=== PATIENT | female | born 1950 | race Hispanic/Latino ===

== ENCOUNTER 2019-12-14 08:59 | Emergency (ER) | payer MEDICARE, OTHER ==
[~2019-12-14 08:59] MED LIST: AEC81 PO; LISI10TA7 PO
[2019-12-14] MEDS ORDERED: ONDANSETRON ODT 4 MG TAB ONE (09:32)
[2019-12-14] MEDS ORDERED: HYDROCODONE/ACETAMINOPHEN 5/325 MG TAB ONE (09:33)
== END 2019-12-14 11:18 | disposition home or self-care (01) ==
LOC: EDH 08:59
DX: S62.102A Fracture of unspecified carpal bone, left wrist, initial encounter for closed fracture (principal); E11.9 Type 2 diabetes mellitus without complications; I10 Essential (primary) hypertension; E78.00 Pure hypercholesterolemia, unspecified; W18.39XA Other fall on same level, initial encounter; Y93.89 Activity, other specified; Y92.098 Other place in other non-institutional residence as the place of occurrence of the external cause; Y99.8 Other external cause status
CPT/HCPCS: 29125; 73110

== ENCOUNTER → 2022-10-16 | Outpatient (CLI) | payer OTHER ==
[~2022-10-16] MED LIST changes: +LISI10TA24 PO; -LISI10TA7 PO
== END | disposition home or self-care (01) ==
LOC: SHCH 08:46
PROVIDERS: ATTEND Internal Medicine
DX: I08.3 Combined rheumatic disorders of mitral, aortic and tricuspid valves (principal); I10 Essential (primary) hypertension
CPT/HCPCS: 93306

== ENCOUNTER → 2022-11-03 | Outpatient (CLI) | payer OTHER | END | disposition home or self-care (01) | LOC: RAH 13:36 | PROVIDERS: ATTEND Family Medicine | DX: Z12.31 Encounter for screening mammogram for malignant neoplasm of breast (principal) | CPT/HCPCS: 77067 ==

== ENCOUNTER → 2023-11-07 | Outpatient (CLI) | payer OTHER | END | disposition home or self-care (01) | LOC: RAH 12:10 | PROVIDERS: ATTEND Internal Medicine | DX: Z13.6 Encounter for screening for cardiovascular disorders (principal); I10 Essential (primary) hypertension | CPT/HCPCS: 75571 ==

== ENCOUNTER → 2025-01-03 | Outpatient (CLI) | payer OTHER ==
[2025-01-03] MEDS: REGADENOSON 0.4 MG/5 ML PF SYG IVP ONE (13:43)
== END | disposition home or self-care (01) ==
LOC: SHCH 08:12
PROVIDERS: ATTEND Internal Medicine
DX: R93.1 Abnormal findings on diagnostic imaging of heart and coronary circulation (principal); R06.00 Dyspnea, unspecified
CPT/HCPCS: 78452; 93017; J2785; A9500 ×2

== ENCOUNTER 2025-04-08 15:04 | Observation (INO) | payer OTHER ==
[~2025-04-08] VITALS: Ht 157.5 cm; Wt 54.2 kg
[2025-04-08 15:29] LABS: APPEARANCE,URINE CLEAR (CLEAR); GLUCOSE, URINE (UA) NEGATIVE (NEGATIVE); LEUKOCYTE ESTERASE ,URINE 25 Leu/uL (NEGATIVE); NITRATE,URINE NEGATIVE (NEGATIVE); OCCULT BLOOD,URINE MODERATE (NEGATIVE)
[2025-04-08 15:31] LABS: ADD UA MICROSCOPIC YES
[2025-04-08 15:37] LABS: SQUAMOUS EPITHELIAL CELL,UR RARE /HPF (0-2)
--- NOTE | 2025-04-08 16:23 | HMCIMG ---
EXAM: CR Lumbar Spine, 3 View. CLINICAL HISTORY: LEFT LOWER BACK PAIN COMPARISON: None provided. FINDINGS: Mild dextroscoliosis. The bony structures appear demineralized. Grade 3 anterior listhesis of the L5 over the S1 vertebral body. Compression deformity superior endplate of L2. Mild compression deformity superior endplate of L1 and T12. Marked loss of the L5-S1 disc space DISCS / DEGENERATIVE CHANGES: The disc spaces are preserved. SOFT TISSUES: The soft tissues are unremarkable. IMPRESSION: 1. Grade 3 L5-S1 anterolisthesis. Recommend MRI lumbar spine for further evaluation. 2. Compression deformities of L2, L1, and T12 superior endplates. 3. Osteopenia. 4. Mild dextroscoliosis. /[place]
--- NOTE | 2025-04-08 17:45 | ERN ---
ED Note History of Present Illness Stated Complaint: PAIN TO LEFT SIDE OF BACK Chief Complaint: Back Pain-No Injury Time Seen by MD: 15:06 Time Seen by Midlevel: 15:10 Dictation: THE 74-YEAR-OLD FEMALE COMING IN WITH COMPLAINTS OF LEFT LOWER BACK PAIN RADIATING TO THE LEFT LOWER ABDOMEN. PATIENT STATES IT STARTED YESTERDAY EVENING. PATIENT STATES YESTERDAY DURING THE DAY SHE WAS MOVING FOR ANTERIOR AROUND LOOKING FOR A SNAKE AND PAIN STARTED SHORTLY AFTER. DENIES ANY FALL. DENIES ANY NUMBNESS, TINGLING, INCONTINENCE. Allergies: Coded Allergies: No Known Drug Allergies (Verified Allergy, Unknown, 09/05/14) Home Meds Reported Medications Lisinopril (Lisinopril) 10 Mg Tablet, 10 MG PO AM, TAB 09/10/14 Aspirin (ASPIRIN 81 MG ECTAB) 81 Mg Ectab, 81 MG PO AM, TAB.EC 09/10/14 Past Medical History Past Medical History: High Cholesterol, Hypertension Surgical History: Hysterectomy Review of System Dictation Constitutional: Negative for fever,chills, and weight loss Eyes: Negative for injury, pain,redness, and discharge ENT: Negative for injury,pain or swelling Cardiovascular: Negative for chest pain, palpitations, and edema Respiratory: Negative for shortness of breath, cough, and wheezing, Abdomen/GI: Negative for abdominal pain, nausea, vomiting, diarrhea, and constipation Back: Negative for injury and pain : Negative for injury, bleeding and discharge MS/Extremity: Negative for injury and deformity, complaining of left lower back pain radiating to the left lower inguinal area Skin: Negative for rash, and discoloration Neuro: Negative for headache, weakness, numbness, tingling, and seizure Psych: Negative for suicide ideation, homicidal ideation, and hallucinations Review of Systems: was completed Initial Vital Sign VS Vital Signs Date Time Temp Pulse Resp B/P (MAP) Pulse Ox O2 Delivery O2 Flow Rate FiO2 04/08/25 15:06 98.1 69 16 163/69 100 Room Air 0 04/08/25 15:15 21 Physical Exam Dictation General: awake, alert, NAD Head/Face: Normocephalic, atraumatic Eyes: PERRL, EOMI, vision at baseline ENT: oral cavity clear, TMs clear, no signs of infection Neck: Trachea midline, supple, no nuchal rigidity Cardiovascular: RRR, normal S1/S2, No MRGs, no JVD Respiratory: CTAB, no respiratory distress, No rales or wheezes Abdomen: Soft, non-tender, non-distended, normal bowel sounds, no guarding or rebound. Skin: Warm, dry, normal turgor, no rash MS/Extremity: Pulses equal, no cyanosis, neurovascular intact, FROM, pain to the left lower back, radiating to the left inguinal area Neuro: COAx4, GCS 15, strength 5/5, CN 2-12 intact, normal cerebellar exam, normal gait, Psych: Normal behavior, mood, and affect normal Results (Laboratory/Radiology) Laboratory/Radiology Laboratory Tests Test 04/08/25 15:21 04/08/25 18:41 Urine Color LIGHT-YELLOW (YELLOW) Urine Appearance CLEAR (CLEAR) Urine pH 5.5 (5.0-8.0) Urine Specific [place] 1.017 (1.001-1.031) Urine Protein NEGATIVE mg/dL (NEGATIVE) Urine Glucose (UA) NEGATIVE mg/dL (NEGATIVE) Urine Ketones NEGATIVE mg/dL (NEGATIVE) Urine Occult Blood MODERATE (NEGATIVE) H Urine Nitrate NEGATIVE (NEGATIVE) Urine Bilirubin NEGATIVE mg/dL (NEGATIVE) Urine Urobilinogen 0.2 mg/dL (0.2-1.0) Urine Leukocyte Esterase 25 Adriana/uL (NEGATIVE) H Urine RBC 11-25 /HPF (0-1) H Urine WBC 2-5 /HPF (0-1) H Urine Squamous Epithelial Cells RARE /HPF (0-2) Urine Bacteria MOD /HPF (None Seen) White Blood Count 8.4 K/uL (4.8-10.8) Red Blood Count 4.59 MIL/uL (4.00-5.50) Hemoglobin 13.3 g/dL (12.0-16.0) Hematocrit 39.7 % (36-48) Mean Corpuscular Volume 86.5 fL (79-99) Mean Corpuscular Hemoglobin 29.0 pg (27.0-33.0) Mean Corpuscular Hemoglobin Concent 33.5 g/dL (32.0-36.0) Red Cell Distribution Width 12.8 % (11.0-15.5) Platelet Count 288 K/uL (130-400) Mean Platelet Volume 9.5 fL (7.5-10.5) Immature Granulocyte % (Auto) 0.2 % (0-1) Neutrophils (%) (Auto) 53.7 % (40.0-77.0) Lymphocytes (%) (Auto) 34.6 % (21.0-51.0) Monocytes (%) (Auto) 7.5 % (3.0-13.0) Eosinophils (%) (Auto) 2.8 % (0.0-8.0) Basophils (%) (Auto) 1.2 % (0.0-5.0) Neutrophils # (Auto) 4.5 K/uL (1.8-7.7) Lymphocytes # (Auto) 2.9 K/uL (1.0-4.8) Monocytes # (Auto) 0.6 K/uL (0.1-1.0) Eosinophils # (Auto) 0.24 K/uL (0.00-0.70) Basophils # (Auto) 0.10 K/uL (0.00-0.20) Absolute Immature Granulocyte (auto 0.02 K/uL (0-1) Nucleated Red Blood Cells 0.0 % (0.0-0.19) Sodium Level 137 mmol/L (136-145) Potassium Level 4.0 mmol/L (3.5-5.1) Chloride Level 102 mmol/L (101-111) Carbon Dioxide Level 28 mmol/L (21-32) Blood Urea Nitrogen 24 mg/dL (7-18) H Creatinine 1.0 mg/dL (0.5-1.0) Glomerular Filtration Rate Calc 59 mL/min (>90) Random Glucose 103 mg/dL (70-105) Total Calcium 9.2 mg/dL (8.5-10.1) Labs Reviewed?: Yes X-RAY Comment: [place] [address] IMAGING REPORT Signed PATIENT: SAHIL MATIAS MR#: [id number] : 1950 SEX: F AGE: 74 LOCATION: [facility] ORDER 20 STATUS: REG ER REPORT#: [id number] SERVICE 152 REASON: LEFT LOWER BACK PAIN ORDERING PHYSICIAN: HARMAN,RIANNA BRICK TENDER PROCEDURE: LUMB 2 3VW - LUMBAR SPINE 2-3VWS EXAM: CR Lumbar Spine, 3 View. CLINICAL HISTORY: LEFT LOWER BACK PAIN COMPARISON: None provided. FINDINGS: Mild dextroscoliosis. The bony structures appear demineralized. Grade 3 anterior listhesis of the L5 over the S1 vertebral body. Compression deformity superior endplate of L2. Mild compression deformity superior endplate of L1 and T12. Marked loss of the L5-S1 disc space DISCS / DEGENERATIVE CHANGES: The disc spaces are preserved. SOFT TISSUES: The soft tissues are unremarkable. IMPRESSION: 1. Grade 3 L5-S1 anterolisthesis. Recommend MRI lumbar spine for further evaluation. 2. Compression deformities of L2, L1, and T12 superior endplates. 3. Osteopenia. 4. Mild dextroscoliosis. /[place] DICTATED BY: VICENTE RIOJAS MD DATE: 04/08/251722 ELECTRONICALLY SIGNED BY: VICENTE RIOJAS MD DATE: 04/08/251722 ED Course ED Course Orders Procedure Category Date Status Time Lumbar Spine 2-3vws RAD 04/08/25 Resulted 15:20 Urinalysis Profile LAB 04/08/25 Complete 15:20 Tramadol Hcl (Ultram) PHA 04/08/25 Complete 15:22 Ct Abdomen/Pelvis W/O CT 04/08/25 Resulted Contrast 16:01 Cbc With Differential LAB 04/08/25 Complete 18:27 Basic Metabolic Panel LAB 04/08/25 Complete 18:27 Culture Urine LOKESH 04/08/25 In Process 18:32 Ceftriaxone 1g Vial PHA 04/08/25 Complete (Rocephine 1g Inj) 18:32 Mr Spinal Canal, Lumb MRI 04/08/25 Logged W/Wo Con 20:27 Ct Lumbar Spine W/O CT 04/08/25 Logged Contrast 20:27 Current Medications Medications (Trade) Dose Ordered Sig/Donya Route PRN Reason Start Time Stop Time Status Last Admin Dose Admin Ceftriaxone Sodium (ROCEphine 1G INJ) 1 gm ONCE STAT IVPB 04/08/25 18:32 04/08/25 18:35 DC 04/08/25 18:48 Tramadol HCl (UltRAM) 50 mg ONCE STAT PO 04/08/25 15:22 04/08/25 15:26 DC 04/08/25 15:38 Vital Signs Date Time Temp Pulse Resp B/P (MAP) Pulse Ox O2 Delivery O2 Flow Rate FiO2 04/08/25 15:15 98.2 66 16 160/65 98 Room Air* 0 21 04/08/25 15:06 98.1 69 16 163/69 100 Room Air 0 Medical Decision Making MDM MDM: THE 74-YEAR-OLD FEMALE COMING IN WITH COMPLAINTS OF LEFT LOWER BACK PAIN RADIATING TO THE LEFT LOWER ABDOMEN. PATIENT STATES IT STARTED YESTERDAY EVENING. PATIENT STATES YESTERDAY DURING THE DAY SHE WAS MOVING FOR ANTERIOR AROUND LOOKING FOR A SNAKE AND PAIN STARTED SHORTLY AFTER. DENIES ANY FALL. DENIES ANY NUMBNESS, TINGLING, INCONTINENCE. Patient came in ambulating without assistance. CBC shows no leukocytosis, no anemia, no thrombocytopenia. Chemistry unremarkable. UA shows evidence of urinary tract infection. Antibiotics given in the emergency room. L-spine x-ray of the showing a grade 3 L5-S1 anterolisthesis, compression deformities of L2, L1 and T12 superior endplates. CT scan of the abdomen and pelvis ordered to rule out any nephrolithiasis, waiting no acute intra-abdominal or pelvic pathology. No acute or suspicious osseous abnormality, spondylitic grade 2-3 anterolisthesis of L5 with respect up this one. Due to patient's age and patient be admitted for seo specialist. at 2019 i Spoke to AMARILYS Carson for [facility], accepted admission however wanted me to order an MRI stat. There is a neurology on-call for today and tomorrow if the patient needs a specialist consult. Differential diagnosis: Contusion, muscle spasm, L spine injury Rationale: Tests considered and ordered secondary to shared decision making include: labs, ECG and radiology Previous outside records reviewed: Old ER visits. Risk of complication and/or morbidity or mortality of patient management: None Medications-Per medication reconciliation Need for hospitalization: Patient does meet criteria for hospitalization. Need for emergency major/minor surgery: No There are no social concerns with this patient. Prescription drug management Prescriptions will include symptomatic care Patient's prior external medical records from other ER visits were reviewed by me as indicated. Prior testing and results from previous visits were reviewed. Prior tests were taken into account with medical decision making and resource utilization, independent historian/historians were used to obtain complete medical history. I independently interpreted the test that were performed, results were reviewed by me and considered findings on radiology if ordered. Medical management and examination interpretation discussions were had by me with other qualified healthcare professionals as indicated for the patient's care. DX & DISP Disposition: Inpatient Decision to Admit Date: Apr 08, 2025 Decision to Admit Time: 20:34 Departure Impression: Primary Impression: Back pain Additional Impressions: Compression deformity of vertebra, UTI (urinary tract infection) Condition: Stable Referrals: BALWINDER RICARDO M.D. (PCP) I have reviewed the case, and I agree with, Diagnosis and Plan RIANNA HARMAN NP Apr 08, 2025 17:45
--- NOTE | 2025-04-08 18:21 | HMCIMG ---
EXAM: CT Abdomen and Pelvis without IV contrast CLINICAL HISTORY: HEMATURIA TECHNIQUE: Axial computed tomography images of the abdomen and pelvis without intravenous contrast. CT scan performed according to ALARA. Automated exposure control used during exam. CONTRAST: without intravenous contrast. COMPARISON: None provided. FINDINGS: Lung bases are clear. Limited evaluation of the abdominal organs without intravenous contrast. No focal abnormality appreciated within the liver, gallbladder, either adrenal gland, either kidney, spleen, or pancreas. Low-attenuation foci within the liver are presumed reflect cysts; however these may be further characterized with ultrasound. Bowel loops are normal in caliber without evidence of obstruction or ileus. No obvious bowel wall thickening appreciated. The appendix was not visualized. No inflammatory changes are seen within the right lower quadrant to suggest acute appendicitis. No abnormality within the unopacified bladder. The uterus is surgically absent. Presumed 1.8 x 1.3 cm right ovarian cyst. There is no ascites or lymphadenopathy. Atherosclerotic vascular calcifications are noted. There is no acute or suspicious osseous abnormality. Spondylitic grade 2-3 anterolisthesis of L5 with respect S1. Severe disc disease at L5-S1 and mild to moderate disc disease at remaining lumbar levels. IMPRESSION: 1. No acute intraabdominal or pelvic pathology. 2. Specifically no radiopaque renal calculus or hydronephrosis. /[place]
[2025-04-08 18:48] LABS: IMMATURE GRANULOCYTE ABSOLUTE 0.02 K/uL (0-1); NUCLEATED RED BLOOD CELLS 0.0 % (0.0-0.19); PLATELET COUNT (AUTO) 288 K/uL (130-400); RED BLOOD CELL COUNT(AUTO) 4.59 MIL/uL (4.00-5.50); RED CELL DISTRIBUTION WIDTH 12.8 % (11.0-15.5); WHITE BLOOD COUNT (AUTO) 8.4 K/uL (4.8-10.8)
[2025-04-08 18:55] LABS: CREATININE 1.0 mg/dL (0.5-1.0); GLOMERULAR FILTR. RATE CALC 59.0 mL/min (>90); GLUCOSE,RANDOM 103.0 mg/dL (70-105); SODIUM SERUM 137.0 mmol/L (136-145); UREA NITROGEN, BLOOD 24.0 mg/dL (7-18)
--- NOTE | 2025-04-08 19:03 | NUR ---
transfer care to [facility] at this time
--- NOTE | 2025-04-08 20:48 | HP ---
[facility] HISTORY & PHYSICAL Date Patient Seen: Apr 08, 2025 Time of Visit: 20:35 Supervising Physician: [Dr. Myles Mack ] Primary Care Physician: [DIAN Wright] Outpatient Specialists: [ ] Inpatient Consults: [ ] PROBLEM LIST: R/o Lumbar radiculopathy-POA Intractable lower back pain-POA UTI-POA PLAN: -Admit to medsur unit -Pending MRI and CT of lumbar region, if significant findings might warrant neurosurgical eval -Multimodal pain management -Start on IV Rocephin for UTI coverage -PT/OT to eval and treat -Place on bedrest until MRI findings is obtained HPI: [ Patient is a 74-year-old female who denies any significant medical history who was presented to ED concerning a 3-day duration of lower back pain that started on her left waist after lifting and moving furniture at home. Patient claims that she was in her usual state of health and was checking for some snake in her house. In the process, she and her has been moving some things around and the following day started complaining of left waist/hip pain. She got worried because the pain did not go away so she decided to come to the hospital for further evaluation. She denies other constitutional symptoms. Negative for paresthesia, saddle anesthesia, or loss of urinary/bowel control. At the ED, her preliminary lab works were unremarkable. Urinalysis per concerning for UTI. Lumbar spine x-ray revealed grade 3 L5-S1 anterolisthesis and compression deformities of L2, L1, and T12 superior endplates. A follow-up CT and MRI of the lumbar area was ordered by ED practitioner. Physical assessment was unrevealing except for tenderness on the lower lumbar region. Goals of care were discussed with the patient and verbalizes understanding and agreement. PAST MEDICAL HX: see above PAST SURGICAL HX: noncontributory SOCIAL HISTORY: No tobacco, ETOH, or illicit drug use Coded Allergies: No Known Drug Allergies (Verified Allergy, Unknown, 09/05/14) REVIEW OF SYSTEMS: 12 point ROS reviewed with patient. Pertinent positives mentioned above. Otherwise negative. PHYSICAL EXAM: GENERAL: alert, awake oriented x 3 HEENT: EOMI, Sclera non icteric, moist mucosa NECK: Supple, no JVD, trachea midline LUNGS: Clear breath sounds bilaterally. No wheezes HEART: Regular rate and rhythm. Normal S1 and S2, without murmurs ABD: Abdomen soft, nontender. Bowel sounds present EXT: No clubbing cyanosis or edema. Tenderness on lower lumbar area NEURO: Alert and oriented to person, follows commands Vital Signs (last 8hr) Date Time Temp Pulse Resp B/P (MAP) Pulse Ox O2 Delivery O2 Flow Rate FiO2 04/08/25 15:15 98.2 66 16 160/65 98 Room Air* 0 21 04/08/25 15:06 98.1 69 16 163/69 100 Room Air 0 LABS: Hematology Labs: Test 04/08/25 18:41 Range/Units White Blood Count 8.4 4.8-10.8 K/uL Red Blood Count 4.59 4.00-5.50 MIL/uL Hemoglobin 13.3 12.0-16.0 g/dL Hematocrit 39.7 36-48 % Mean Corpuscular Volume 86.5 79-99 fL Mean Corpuscular Hemoglobin 29.0 27.0-33.0 pg Mean Corpuscular Hemoglobin Concent 33.5 32.0-36.0 g/dL Red Cell Distribution Width 12.8 11.0-15.5 % Platelet Count 288 130-400 K/uL Mean Platelet Volume 9.5 7.5-10.5 fL Immature Granulocyte % (Auto) 0.2 0-1 % Neutrophils (%) (Auto) 53.7 40.0-77.0 % Lymphocytes (%) (Auto) 34.6 21.0-51.0 % Monocytes (%) (Auto) 7.5 3.0-13.0 % Eosinophils (%) (Auto) 2.8 0.0-8.0 % Basophils (%) (Auto) 1.2 0.0-5.0 % Neutrophils # (Auto) 4.5 1.8-7.7 K/uL Lymphocytes # (Auto) 2.9 1.0-4.8 K/uL Monocytes # (Auto) 0.6 0.1-1.0 K/uL Eosinophils # (Auto) 0.24 0.00-0.70 K/uL Basophils # (Auto) 0.10 0.00-0.20 K/uL Absolute Immature Granulocyte (auto 0.02 0-1 K/uL Nucleated Red Blood Cells 0.0 0.0-0.19 % Chemistry Labs: Test 04/08/25 18:41 Range/Units Sodium Level 137 136-145 mmol/L Potassium Level 4.0 3.5-5.1 mmol/L Chloride Level 102 101-111 mmol/L Carbon Dioxide Level 28 21-32 mmol/L Blood Urea Nitrogen 24 H 7-18 mg/dL Creatinine 1.0 0.5-1.0 mg/dL Glomerular Filtration Rate Calc 59 >90 mL/min Random Glucose 103 70-105 mg/dL Total Calcium 9.2 8.5-10.1 mg/dL DIAGNOSTICS / RADIOLOGY RESULTS: [ ] PLAN NEURO: Minimize central acting medications as possible. Maintain fall precautions, adequate lighting during the day PULMONARY: Supplemental 02 as needed. Maintain aspiration precautions at all times CARDIOVASCULAR: Follow hemodynamics. Vital signs per facility protocol GI & NUTRITION: Continue with nutritional support. Continue stool softeners and laxatives as needed. KIDNEYS & ELECTROLYTES: Strict monitoring of intake, output and overall fluid balance. Avoid nephrotoxic medications to the extent possible. Medications to be dosed according to renal function. Monitor electrolytes and replace as needed ENDOCRINE: Maintain blood glucose between 100-180 at all times. Hypoglycemia protocol in place INFECTIOUS DISEASE: Trend temperature, WBC and procalcitonin level Follow cultures, deescalate antibiotics as soon as possible. Panculture if new onset fever ONCOLOGY/HEMATOLOGY/COAGULATION: Monitor for s/s of bleeding Monitor hemoglobin, coagulation studies as needed SKIN: Pressure ulcer prevention per facility protocol Specialty mattress ORTHO/REHAB: Continue PT/OT Prophylaxis: Continue GI and DVT prophylaxis Code Status: Full Resuscitation Disposition: JAVIER REESE AGPCNP Apr 08, 2025 20:48
--- NOTE | 2025-04-08 20:59 | NUR ---
TRANSFERRED PT TO [facility]
[2025-04-08] MEDS ORDERED: LACTULOSE 20 GM/30 ML UDCUP PO PRN (21:00)
[2025-04-08] MEDS: LIDOCAINE 5% TOPICAL PATCH TP SCH (21:28)
[2025-04-08] MEDS: FAMOTIDINE 20MG TAB PO SCH (21:28)
--- NOTE | 2025-04-08 22:05 | HMCIMG ---
EXAM: CT Lumbar Spine Without IV Contrast. CLINICAL HISTORY: Abnormal imaging. X-rays demonstrate a compression fracture. TECHNIQUE: Spiral axial CT images through the lumbar spine were acquired, reconstructed in axial and sagittal projections, and imaged using soft tissue and bone algorithms. Reformatted/MPR images were performed. A CT scan is done according to ALARA (As Low as Reasonably Achievable). CONTRAST: None. COMPARISON: None provided. FINDINGS: No acute fracture. Mild posterior wedging of the L5 vertebra is likely a chronic process. The rest of the vertebral bodies are normal in height. Severe degenerative changes at the L5-S1 level. The rest of the intervertebral disc spaces are normal in height. The surrounding soft tissues are unremarkable. Mild disc bulges at L2-L3, L3-L4, and L4-L5 levels with mild bilateral facet arthropathy. Moderate narrowing of the left neural foramina at the L4-L5 level. Abutment of the left exiting nerve root. Mild posterior wedging of the L5 vertebra. Bilateral pars defect at the L5-S1 level with grade 3 anterolisthesis of L5 over S1 with severe facet arthropathy. Moderate to severe narrowing of the neural foramina at the L5-S1 level. Atherosclerotic calcification of the abdominal aorta and infrarenal aorta. Visualized abdominal and pelvic organs appear unremarkable. Post-hysterectomy status. IMPRESSIONS: No acute fracture. Mild posterior wedging of the L5 vertebra is likely a chronic process. Mild osteopenia. Mild disc bulges at L2-L3, L3-L4, and L4-L5 levels with mild bilateral facet arthropathy. Moderate narrowing of the left neural foramina at the L4-L5 level. Abutment of the left exiting nerve root. Bilateral pars defect at the L5-S1 level with grade 3 anterolisthesis of L5 over S1 with severe facet arthropathy. Moderate to severe narrowing of the neural foramina at the L5-S1 level. /[place]
[2025-04-08 22:13] VITALS: BP 139/67; PULSE 67; RESP 17; TEMP 98.7
--- NOTE | 2025-04-08 23:02 | HMCIMG ---
EXAM: MR Lumbar Spine Without and With intravenous Contrast. CLINICAL HISTORY: Pain. Abnormal prior imaging. TECHNIQUE: Magnetic resonance images of the lumbar spine in multiple planes. COMPARISON: None. FINDINGS: For this examination, spinal levels were labeled assuming five [id number], lumbar-type vertebrae, with the inferior labeled L5. Grade 2 anterolisthesis with bilateral chronic spondylolysis at the L5-S1 level, with severe reduction in the disc height and partial fusion at this level. No acute fracture. Multilevel disc desiccation in the lumbar spine. Mild to moderate reduction in the disc height at the T11-12, T12-L1, and L1-2 levels. Normal vertebral body and disc heights. Normal marrow signal of the vertebrae. Conus medullaris terminates at the T12-L1 level. No abnormal epidural masses. The surrounding soft tissues are unremarkable. TARLOV cyst at the S2 level. Individual spinal levels are described as follows: T12-L1: 2 mm circumferential disc bulge. No neural foraminal, lateral recess, or spinal canal stenosis. L1-L2: 5 mm circumferential disc bulge with a small posterocentral disc extrusion extending inferiorly. Mild canal stenosis. Mild bilateral lateral recess narrowing. Mild left neural foraminal narrowing. Mild bilateral facet arthropathy with ligamentum flavum hypertrophy. L2-L3: 3 mm circumferential disc bulge. Mild canal stenosis. Mild bilateral lateral recess and neural foraminal narrowing. Mild bilateral facet arthropathy with ligamentum flavum hypertrophy. L3-L4: 3 mm circumferential disc bulge. Mild canal stenosis. Mild bilateral lateral recess and neural foraminal narrowing. Mild bilateral facet arthropathy with ligamentum flavum hypertrophy. L4-L5: 4 mm circumferential disc bulge. Mild canal stenosis. Mild bilateral lateral recess and neural foraminal narrowing. Mild bilateral facet arthropathy with ligamentum flavum hypertrophy. L5-S1: Grade 2 anterolisthesis with 15 mm posterior uncovering of the disc. Severe canal stenosis. Severe bilateral neural foraminal narrowing with impingement of the bilateral exiting L5 nerve roots. Moderate to severe bilateral lateral recess narrowing with impingement of the bilateral traversing S1 nerve roots. IMPRESSION: Multilevel degenerative disc disease in the lumbar spine, most pronounced at the L5-S1 level, with grade 2 anterolisthesis and bilateral chronic spondylolysis at this level. /[place]
[2025-04-09] VITALS: O2SAT 100
[2025-04-09 04:00] VITALS: BP 111/59; PULSE 57; RESP 20; TEMP 98.1
[2025-04-09 04:20] LABS: IMMATURE GRANULOCYTE ABSOLUTE 0.02 K/uL (0-1); NUCLEATED RED BLOOD CELLS 0.0 % (0.0-0.19); PLATELET COUNT (AUTO) 247 K/uL (130-400); RED BLOOD CELL COUNT(AUTO) 4.24 MIL/uL (4.00-5.50); RED CELL DISTRIBUTION WIDTH 12.9 % (11.0-15.5); WHITE BLOOD COUNT (AUTO) 7.4 K/uL (4.8-10.8)
[2025-04-09 04:31] LABS: CREATININE 1.0 mg/dL (0.5-1.0); GLOMERULAR FILTR. RATE CALC 59.0 mL/min (>90); GLUCOSE,RANDOM 77.0 mg/dL (70-105); PHOSPHORUS 4.4 mg/dL (2.5-4.9); SODIUM SERUM 141.0 mmol/L (136-145); UREA NITROGEN, BLOOD 23.0 mg/dL (7-18)
[2025-04-09 07:57] VITALS: BP 139/52; PULSE 71; RESP 18; TEMP 98.3
[2025-04-09 08:00] VITALS: O2SAT 98
[2025-04-09] MEDS: ENOXAPARIN SODIUM 30 MG/0.3 ML SQ SCH (08:22)
[2025-04-09 10:42] VITALS: BP 136/58; PULSE 70; RESP 18; TEMP 98.1
--- NOTE | 2025-04-09 13:56 | NUR ---
DCP:HOME Pt currently lives with sps in their home. Pt does not have any DME, home health, or provider services. Pt states that she is able to complete ADLs independently. PCP is Kenya Wright and uses [facility] for any RX needs. At [place] pt will want to go home and family can assist with transportation. Addendum: 04/09/25 at 1359 by VICENTE ELAINE SS Amended: Links added.
[2025-04-09] MEDS ORDERED: LEVO750T68 PO (16:23)
--- NOTE | 2025-04-09 16:23 | DS ---
[facility] DISCHARGE SUMMARY Date Patient Seen: Apr 09, 2025 Time of Visit: 16:23 Supervising Physician: Dr. Myles Mack Primary Care Physician: [DIAN Wright] Outpatient Specialists: [ ] Inpatient Consults: NA PROBLEM LIST: Intractable lower back pain, due to strain, resolved Urinary tract infection, asymptomatic, (+) gram negative rods, RX for Levaquin HPI (per admitting provider): Patient is a 74-year-old female who denies any significant medical history who was presented to ED concerning a 3-day duration of lower back pain that started on her left waist after lifting and moving furniture at home. Patient claims that she was in her usual state of health and was checking for some snake in her house. In the process, she and her has been moving some things around and the following day started complaining of left waist/hip pain. She got worried because the pain did not go away so she decided to come to the hospital for further evaluation. She denies other constitutional symptoms. Negative for paresthesia, saddle anesthesia, or loss of urinary/bowel control. At the ED, her preliminary lab works were unremarkable. Urinalysis per concerning for UTI. Lumbar spine x-ray revealed grade 3 L5-S1 anterolisthesis and compression deformities of L2, L1, and T12 superior endplates. A follow-up CT and MRI of the lumbar area was ordered by ED practitioner. Physical assessment was unrevea ling except for tenderness on the lower lumbar region. Goals of care were discussed with the patient and verbalizes understanding and agreement. HOSPITAL COURSE: Patient was admitted due to low back pain/left hip pain. She was started on lidocaine patch and methocarbamol dose x 1 was given yesterday in the ER. 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 Today, patient is sitting on bedside chair. AAOX3. Denies any pain to back. States she has been ambulating and turning her upper torso without any issues.Denies any paresthesias or loss of urinary/bowel control, strength 5/5. Explained MRI results lumbar to daughter and patient. Advised to follow up with PCP and neurosurgery once discharged and copy of MRI lumbar provided to patient per request. Stable for discharge. Advised to purchase lidocaine patches over the counter and take ibuprofen and Tylenol if any pain. Denies any urinary issues such as dysuria. Urine culture positive for gram negative rods. RX for Levaquin sent to pharmacy. Vital signs are stable. Labs are within limits. Patient has been advised to follow-up with PCP in next [address] Ladd. Medication reconciliation has been completed. RX with new medications sent to pharmacy (see list below). Education regarding current diagnoses has been provided to the patient. Discussed s/s that would warrant return to the emergency department. All questions have been answered. Patient to be discharged home. New Medications: Levofloxacin (Levaquin 750Mg Tabs) 750 Mg Tablet 1 TAB PO DAILY for 3 Days, #3 TAB 0 Refills Continued Medications: Aspirin (Aspirin 81 Mg Ectab) 81 Mg Ectab 81 MG PO AM, TAB.EC PHYSICAL EXAM: GENERAL: alert, awake oriented x 3 HEENT: EOMI, Sclera non icteric, moist mucosa NECK: Supple, no JVD, trachea midline LUNGS: Clear breath sounds bilaterally. No wheezes HEART: Regular rate and rhythm. Normal S1 and S2, without murmurs ABD: Abdomen soft, nontender. Bowel sounds present EXT: No clubbing cyanosis or edema. NEURO: AAOx3, follows commands FOLLOW-UP: Follow-up with PCP in 2-3 days RECOMMENDATIONS: See Discharge Instructions This case was seen and discussed with my supervising physician. More than 30 minutes spent on discharge process, including evaluation of the patient, discussion with nursing staff, medication reconciliation and follow-up appointments AGUSTÍN LAWRENCE NP Apr 09, 2025 16:23
[2025-04-09 16:24] VITALS: BP 135/51; PULSE 68; RESP 16; TEMP 98.4
--- NOTE | 2025-04-09 18:01 | NUR ---
DC INSTRUCTION PROVIDED TO PATIENT AND DAUGHTER , PATIENT VERBALIZED UNDERSTANDING
== END 2025-04-09 17:40 | disposition home or self-care (01) ==
LOC: EDH 15:04 → EDHIP 20:41 → 4AH 23:00
PROVIDERS: ADMIT Internal Medicine; ATTEND Internal Medicine
DX: S39.012A Strain of muscle, fascia and tendon of lower back, initial encounter (principal); M51.369 Other intervertebral disc degeneration, lumbar region without mention of lumbar back pain or lower extremity pain; M48.56XA Collapsed vertebra, not elsewhere classified, lumbar region, initial encounter for fracture; M85.80 Other specified disorders of bone density and structure, unspecified site; N39.0 Urinary tract infection, site not specified; E78.00 Pure hypercholesterolemia, unspecified; M25.552 Pain in left hip; I10 Essential (primary) hypertension; Z79.82 Long term (current) use of aspirin; Z90.710 Acquired absence of both cervix and uterus; Z79.899 Other long term (current) drug therapy; Z98.890 Other specified postprocedural states; X58.XXXA Exposure to other specified factors, initial encounter; Y93.89 Activity, other specified; Y92.89 Other specified places as the place of occurrence of the external cause; Y99.8 Other external cause status
CPT/HCPCS: 96376; 99285; 80048 ×2; 85025 ×2; 87086 ×2; 87186; 81001; 36415 ×2; 72100; 72131; 74176; 72158; 96372; 96365; 96366; 83735; 84100; 97161; 97116; 97530; G0378 ×21; J0696 ×2; J1650

== ENCOUNTER → 2025-04-19 | Outpatient (CLI) | payer OTHER ==
[~2025-04-19] MED LIST changes: +LEVO750T68 PO; -LISI10TA24 PO
--- NOTE | 2025-04-19 15:04 | HMCIMG ---
Exam: NONCONTRAST CT BRAIN REASON: Unspecified dementia, mild, without behavioral disturbance, psychotic distu. COMPARISON: None. TECHNIQUE: Images are obtained from vertex to the skull base. The exam was performed without IV contrast. FINDINGS: There is normal appearing brain parenchyma. There are no focal mass lesions. There is is no evidence of intracranial hemorrhage or acute stroke. Ventricles and sulci appear normal. Posterior fossa and brainstem structures are unremarkable. Paranasal sinuses and remaining extracranial soft tissues appear normal as well.There is mild global atrophy consistent with patient's chronological age. IMPRESSION: 1. No acute intracranial process. CT was performed with one or more following dose reduction techniques: automated exposure control, adjustment of the mA and kv according to patient's size, or use of a iterative reconstruction technique.
== END | disposition home or self-care (01) ==
LOC: RAH 12:52
PROVIDERS: ATTEND Family Medicine
DX: G31.89 Other specified degenerative diseases of nervous system (principal); F03.A0 Unspecified dementia, mild, without behavioral disturbance, psychotic disturbance, mood disturbance, and anxiety
CPT/HCPCS: 70450

== ENCOUNTER → 2025-05-28 | Outpatient (CLI) | payer OTHER | END | disposition home or self-care (01) | LOC: RAH 14:37 | PROVIDERS: ATTEND Family Medicine | DX: Z12.31 Encounter for screening mammogram for malignant neoplasm of breast (principal) | CPT/HCPCS: 77067 ==